=== PATIENT | female | born 1960 | race Caucasian/White ===

== ENCOUNTER 2019-06-03 16:04 | Emergency (ER) | payer MEDICARE, MEDICAID, SELFPAY ==
[2019-06-03] VITALS (8 sets, daily range): BP systolic 126–180; BP diastolic 66–93; PULSE 61–71; RESP 12–51; TEMP 36.2; O2SAT 97–100
--- NOTE | ~2019-06-03 | CT_ITS ---
EXAMINATION: CT BRAIN W/O DATE: 06/03/2019 18:45 INDICATION: Headache. Hypertension. TECHNIQUE: Computed tomography (CT) of the head was performed without intravenous contrast. The dose- length product was 681.00 mGy-cm. The mA was adjusted according to patient size. Iterative reconstruc tion technique was employed. COMPARISON: No prior studies for comparison. FINDINGS: Normal brain parenchymal volume for age. Normal sandhu-white differentiation. No acute intrac ranial hemorrhage, infarction, mass or mass effect. There is intracranial atherosclerosis. No ventriculomegaly or midline shift. Midline sagittal images demonstrate a normal corpus callosum, c raniovertebral junction and sella turcica. Basilar cisterns are patent. There is right maxillary and left ethmoid sinus disease. No depressed skull fractures. IMPRESSION: 1. No acute intracranial abnormality. 2: Sinusitis. Reviewed, dictated and finalized at location A. [employer] PRO[employer] MANAGER
--- NOTE | 2019-06-03 16:17 | ECG_ITS ---
Measurements Intervals [place] Rate: 62 P: 50 RI: 238 QRS: -13 QRSD: 85 T: -3 QT: 439 QTc: 448 Interpretive Statements SINUS RHYTHM WITH FIRST DEGREE AV BLOCK POSSIBLE LEFT ATRIAL ENLARGEMENT LOW QRS VOLTAGE IN PRECORDIAL LEADS POSSIBLE LEFT VENTRICULAR HYPERTROPHY BORDERLINE R WAVE PROGRESSION, ANTERIOR LEADS BASELINE ARTIFACT- V4-V6 ABNORMAL ECG Electronically Signed On 06-03-2019 18:58:01 PROGRAM MANAGER [employer]MENT[employer]ANNING by Pop Thacker D.O.
--- NOTE | 2019-06-03 16:28 | ED.HA ---
HPI - Headache General Chief Complaint: Headache Stated Complaint: HTN,MULLINS Time Seen by Provider: 06/03/19 16:24 Source: patient and RN notes reviewed Mode of arrival: EMS Limitations: no limitations History of Present Illness HPI Narrative: A 59 y/o female, with a hx of HTN, presents to the ED via EMS from PCP's office with a generalized MULLINS beginning this morning. She reports associated dizziness and just feeling like crap .. She states that she went to her PCP's office today and that her BP was 190/104, so they called EMS to have the pt brought here. She notes that she did take her BP medication today but that she is unsure what it is called. She denies any fevers, cough, chills, sore throat, N/V/D, ABD pain, SOB, dysuria, hematuria, and any other medical complaints at this time. MD elicited complaint: headache Pertinent past history: hypertension Onset (ago): hour(s) Location: generalized Associated symptoms: other (dizziness and just feels like crap ) Related Data Allergies Allergy/AdvReac Type Severity Reaction Status Date / Time lisinopril Allergy Swelling Verified 06/03/19 17:50 Review of Systems Review of Systems: All systems reviewed & are unremarkable except as noted in HPI and below Constitutional: Constitutional: Denies chills, Denies fatigue, Denies fever(s), Denies night sweats and Reports other ( just feels like crap ) Eyes: Eyes: Denies change in vision, Denies loss of vision and Denies other visual disturbances ENT: Denies headache(s), Denies hoarseness, Denies epistaxis, Denies nasal congestion and Denies sore throat Cardiovascular: Cardiovascular: Denies chest pain, Denies leg edema, Denies palpitations and Denies dyspnea Respiratory: Respiratory: Denies cough, Denies dyspnea and Denies wheezing Gastrointestinal: Gastrointestinal: Denies abdominal pain, Denies diarrhea, Denies nausea and Denies vomiting Genitourinary: Genitourinary: Denies hematuria, Denies urinary frequency and Denies dysuria Musculoskeletal: Musculoskeletal: Denies abnormal gait, Denies deformity, Denies joint swelling, Denies muscle weakness and Denies numbness Integumentary/Breasts: Skin/Breast: Denies rash, Denies unusual bruising and Denies wounds Neurologic: Denies abnormal gait, Reports dizziness, Reports headache(s), Denies focal weakness, Denies loss of vision and Denies numbness Psychiatric: Psychiatric: Reports no additional psychiatric complaints Endocrine: Endocrine: Denies fatigue and Denies palpitations Hematologic/Lymphatic: Hematologic/Lymphatic: Denies easy bleeding and Denies easy bruising Allergic/Immunologic: Allergic/Immunologic: Denies wheezing PMFSH Past Medical History Medical History (Updated 06/03/19 @ 19:31 by Driss Khanna MD) H/O: HTN (hypertension) Medical history unknown Surgical History Surgical History (Updated 06/03/19 @ 17:06 by Akash Cheng) Surgical history unknown Social History Social History (Updated 06/03/19 @ 17:06 by Akash Cheng) Smoking status: Unknown if ever smoked Gender identity (if verbalized by the patient): Female Comments PCP: Dr. Escobar. Exam Const: General: healthy appearing, no acute distress and well developed Nutritional Appearance: well nourished Orientation/consciousness: patient oriented x3 (alert) and Other orientation findings (Alert) Limitations: no limitations HENMT: Head: normocephalic and atraumatic Ears: external ears normal General nose exam: No nasal discharge present and no epistaxis Face and sinus: face symmetric Mouth: Yes lip normal, Yes tongue normal and Yes moist mucous membranes Throat: other (No exudate, no erythema) Eyes: Conjunctivae: conjunctivae normal Sclera: sclerae normal EOM: EOMs intact bilaterally Neck: Neck: full ROM, no lymphadenopathy and supple Thyroid: thyroid normal Chest: Chest palpation & inspection: no tenderness Resp: Effort & Inspection: normal respiratory effort Auscultation: clear to auscultation
[2019-06-03 17:49] LABS: Basophils Percent Auto 0.5 % (0.2-1.2); Eosinophils Absolute Auto 0.1 K/mm3 (0-0.3); Eosinophils Percent Auto 2.9 % (0-4.4); Hematocrit 35.7 % (37.0-47.0); Hemoglobin 12.3 g/dL (12.0-15.0); Immature Granulocyte Absolute 0.01 K/mm3 (0.00-0.031); Immature Granulocyte Percent A 0.2 % (0-0.5); Lymphocytes Absolute Auto 2.25 K/mm3 (0.9-3.2); Lymphocytes Percent Auto 55.1 % (18.3-44.2); Mean Corpuscular HGB Conc 34.5 g/dl (32-36); Mean Corpuscular Hemoglobin 31.9 pg (26-34); Mean Corpuscular Volume 92.5 fl (80-100); Mean Platelet Volume 11.6 fl (7.4-10.4); Monocytes Absolute Auto 0.4 K/mm3 (0.1-0.6); Neutrophils Absolute Auto 1.3 K/mm3 (1.3-6.7); Neutrophils Percent Auto 31.3 % (45.5-73.1); Platelet Count Result 95 k/mm3 (150-375); Red Blood Count 3.86 M/mm3 (4.2-5.4); White Blood Count 4.1 K/mm3 (4.5-10.0)
[2019-06-03 18:02] LABS: Blood Urea Nitrogen 11 mg/dL (7-17); Carbon Dioxide 22 mmol/L (22-30); Chloride 106 mmol/L (98-107); Estimated Glomerular Filt Rate > 60; Glucose 147 mg/dL (65-105); Potassium 3.8 mmol/L (3.4-5.0); Sodium 137 mmol/L (137-145)
[2019-06-03] MEDS: hydrALAZINE HCL 20 MG/ML VIAL 10 MG IV PUSH (18:07)
[2019-06-03 18:14] LABS: Troponin I < 0.012 ng/mL (0.000-0.034)
== END 2019-06-03 19:46 | disposition home or self-care (01) ==
PROVIDERS: Emergency Provider Emergency Medicine
DX: R51 Headache (principal); J34.89 Other specified disorders of nose and nasal sinuses
CPT/HCPCS: 36415; 70450; 80048; 84484; 85025; 93005; 96374; 99284; J0360

== ENCOUNTER 2019-10-27 11:22 | Emergency (ER) | payer MEDICARE, MEDICAID, SELFPAY ==
[2019-10-27] VITALS (17 sets, daily range): BP systolic 87–130; BP diastolic 48–68; PULSE 70–101; RESP 13–19; TEMP 36.9; O2SAT 92–98
--- NOTE | ~2019-10-27 | CT_ITS ---
EXAMINATION: CT abdomen pelvis w con EXAM DATE: 10/27/2019 13:03 INDICATION: Abdominal pain. Lethargy and confusion. TECHNIQUE: Spiral CT of the abdomen and pelvis was performed following intravenous injection of 100 m L Omnipaque 350. Axial, coronal and sagittal images were reviewed. The dose-length product (DLP) fo r this examination was 799.21 mGy-cm. The exposure was tailored according to patient size (auto mA e xposure control), and iterative reconstruction (ASIR) was used as additional dose reduction technique . There is no prior study for comparison. FINDINGS: Nodular liver contour most likely indicating cirrhosis. Massively dilated left-sided retrop eritoneal veins draining into the portal venous system consistent with portal hypertension. There are cholecystectomy clips. Portal and splenic veins are patent. Kidneys enhance symmetrically. Probabl e 3 mm right calyceal stone. Right renal cyst measuring 1.8 cm. There is no hydronephrosis. The [place] sariah is not identified and has likely been surgically resected. Some diffuse bladder wall thickening, could indicate chronic cystitis. Acute cystitis not excludable. There is no retroperitoneal or pelv ic lymphadenopathy. There is mild scattered arteriosclerotic disease. Probable appendectomy. There is mild scattered colonic diverticulosis. There is no adjacent inflamma tory change to suggest diverticulitis. There is a 2 cm duodenal diverticulum. There is expected amou nt of colonic stool. No free intraperitoneal gas. Mild cardiomegaly. The lung bases are unremark able. There are no osteoblastic or osteolytic lesions identified. IMPRESSION: 1. Diffuse bladder wall thickening could be chronic cystitis but check urinalysis. 2. Cirrhosis, portal hypertension. 3. Right nephrolithiasis. 4. Mild colonic diverticulosis. 5. Mild cardiomegaly Reviewed, dictated and finalized at location B. IMPRESSION: 1. Diffuse bladder wall thickening could be chronic cystitis but check urinaly sis. 2. Cirrhosis, portal hypertension. 3. Right nephrolithiasis. 4. Mild colonic diverticulosis. 5. Mild cardiomegaly
--- NOTE | ~2019-10-27 | CT_ITS ---
EXAMINATION: CT brain wo con EXAM DATE: 10/27/2019 13:04 INDICATION: Lethargy and confusion. TECHNIQUE: Spiral CT of the head was performed without contrast. Axial, coronal and sagittal images were reviewed. The dose-length product (DLP) for this examination was 605.33 mGy-cm. The exposure w as tailored according to patient size, and iterative reconstruction (ASIR) was used as additional dos e reduction technique. Comparison is made to prior examination from 06/03/2019. FINDINGS: There is no acute intraparenchymal hemorrhage. No evidence of intraparenchymal brain mass lesion. No evidence of acute infarction. There is no mass effect or midline shift. The ventricles are normal in size. There are no extra-axial collections. There are no acute calvarial fractures. T he orbits are unremarkable. Soft tissue is unremarkable. Partially imaged maxillary sinuses with op acity in the right. IMPRESSION: 1. No acute intracranial findings. Reviewed, dictated and finalized at location B.
--- NOTE | ~2019-10-27 | XR_ITS ---
EXAMINATION: XR chest 1V portable EXAM DATE: 10/27/2019 13:23 INDICATION: Altered mental status. TECHNIQUE: Portable AP frontal chest x-ray was obtained. Comparison is made to prior examination from 01/22/2017. FINDINGS: The lungs are clear. There are no pleural effusions. Cardiac silhouette is prominent but magnified on this AP technique. There is no pneumothorax suspected. The bones and soft tissues are unremarkable. IMPRESSION: No acute cardiopulmonary findings. Reviewed, dictated and finalized at location B.
--- NOTE | 2019-10-27 11:33 | ECG_ITS ---
Measurements Intervals [place] Rate: 89 P: 69 MA: 172 QRS: 17 QRSD: 93 T: 26 QT: 377 QTc: 459 Interpretive Statements SINUS RHYTHM POSSIBLE LEFT ATRIAL ENLARGEMENT INCOMPLETE RIGHT BUNDLE BRANCH BLOCK BASELINE ARTIFACT- II, III, AVF BORDERLINE ECG Electronically Signed On 10-27-2019 14:41:50 CDT by Pop Thacker D.O.
[2019-10-27 11:45] LABS: Basophils Percent Auto 0.4 % (0.2-1.2); Eosinophils Absolute Auto 0.1 K/mm3 (0-0.3); Hematocrit 36.6 % (37.0-47.0); Hemoglobin 12.6 g/dL (12.0-15.0); Immature Granulocyte Absolute 0.02 K/mm3 (0.00-0.031); Immature Granulocyte Percent A 0.3 % (0-0.5); Lymphocytes Absolute Auto 4.55 K/mm3 (0.9-3.2); Lymphocytes Percent Auto 59.2 % (18.3-44.2); Mean Corpuscular HGB Conc 34.4 g/dl (32-36); Mean Corpuscular Hemoglobin 31.6 pg (26-34); Mean Corpuscular Volume 91.7 fl (80-100); Mean Platelet Volume 10.8 fl (7.4-10.4); Monocytes Absolute Auto 0.7 K/mm3 (0.1-0.6); Monocytes Percent Auto 9.2 % (2.6-8.5); Neutrophils Absolute Auto 2.3 K/mm3 (1.3-6.7); Neutrophils Percent Auto 29.9 % (45.5-73.1); Platelet Count Result 122 k/mm3 (150-375); Red Blood Count 3.99 M/mm3 (4.2-5.4); Red Cell Distribution Width 13.2 % (11.5-14.5); White Blood Count 7.7 K/mm3 (4.5-10.0)
[2019-10-27 11:57] LABS: Alanine Aminotransferase 33 U/L (4-35); Albumin Level 3.8 g/dL (3.5-5.1); Alkaline Phosphatase 99 U/L (38-126); Aspartate Amino Transferase 91 U/L (14-36); Bilirubin,Total 1.8 mg/dL (0.2-1.3); Blood Urea Nitrogen 16 mg/dL (7-17); Calcium 9.7 mg/dL (8.4-10.2); Carbon Dioxide 18 mmol/L (22-30); Chloride 115 mmol/L (98-107); Estimated CRCL calculation 76 ml/min; Estimated Glomerular Filt Rate > 60; Glucose 139 mg/dL (65-105); Potassium 4.6 mmol/L (3.4-5.0); Sodium 140 mmol/L (137-145)
[2019-10-27 12:07] LABS: Add Urine Microscopic? YES; Appearance Urine Clear (Clear); Bilirubin Urine Negative (Negative); Blood Urine 2+ (Negative); Color Urine Yellow (Yellow); Glucose Urine UA Negative (Negative); Ketones Urine Trace mg/dL (Negative); Leukocyte Esterase Ur Trace LEU/UL (Negative); Mucus Urine Rare /lpf; Nitrate Urine Negative (Negative); Protein Urine 1+ mg/dL (Negative); RBC Urine 21-50 /hpf (0-2); Specific Grav Ur 1.017 (1.001-1.035); Squamous Epithelial Cell Urine Rare /hpf (Few)
--- NOTE | 2019-10-27 12:24 | ED.AMS ---
HPI - Altered Mental Status General Chief Complaint: Altered Mental Status Stated Complaint: lethargic Time Seen by Provider: 10/27/19 12:16 History of Present Illness HPI narrative: Patient presents via EMS for altered mental status from home. She has been living with her daughter since for medical reasons. She has chronic hepatitis C and hypertension and diabetes. She has had episodes before where she became unresponsive and had overwhelming infection. She was hoping to move to [place] for further medical treatment but has not made it yet. Here she does not speak she only groans when moved. Her daughter said she was able to help her mother in the shower this morning and wash her hair, but has not been talking since. No recent visible illness. Her mother does smoke cigarettes but does not drink alcohol. Related Data Home Medications Medication Instructions Recorded Confirmed Adult Low Dose Aspirin 81 mg PO DAILY 10/27/19 10/27/19 hydrocodone-acetaminophen PO Q6H PRN 10/27/19 meloxicam 15 mg PO DAILY 10/27/19 10/27/19 pravastatin 20 mg PO DAILY 10/27/19 10/27/19 propranolol 20 mg PO BID 10/27/19 10/27/19 spironolactone 25 mg PO BID 10/27/19 10/27/19 sulfamethoxazole-trimethoprim tablet PO BID 10/27/19 Allergies Allergy/AdvReac Type Severity Reaction Status Date / Time aloe vera Allergy Mild HIVES Verified 08/13/19 13:33 latex Allergy Unknown Rash Verified 10/27/19 11:36 lisinopril Allergy Swelling Verified 08/13/19 13:33 Review of Systems Review of Systems: Narrative: Unable to obtain a review of systems due to the patient being altered mental status. [facility] Past Medical History Medical History H/O: HTN (hypertension) Medical history unknown Surgical History Surgical History (System 08/13/19 @ 13:33 by Monet Zee) Surgical history unknown Family History Family History (System 08/13/19 @ 13:33 by Monet Zee) Father Hypertension Cerebrovascular accident Family history of heart disease in male family member before age 55 Social History Social History Smoking status: Current every day smoker Second hand tobacco smoke exposure: Yes Alcohol intake: never Gender identity (if verbalized by the patient): Female Sexual Orientation (if Verbalized by the Patient): Straight or Heterosexual Exam Narrative: Exam Narrative: GENERAL: Sleeping on her left side in position with her arms curled under her face. Resistant to any movement. We have told her to lay on her back to listen to her heart and lungs and she moaned. HEAD: Normocephalic, atraumatic. EYES: PERRLA and EOMI. ENT: Nares clear, no rhinorrhea or epistaxis. Mucous membranes moist. NECK: Supple. CHEST: Clear to auscultation. No respiratory distress. HEART: Regular rate and rhythm. No murmur heard. Normal peripheral pulses. ABDOMEN: Soft, nontender, nondistended, normal active bowel sounds. EXTREMITIES: No edema. SKIN: Warm, dry, no rash. NEURO: No focal deficits. Lethargic. PSYCH: No eye contact , no spontaneous speech Course Consultations Consultation #1: Tried to call the son and the phone number has been rerouted. Date: 10/27/19 Time: 13:42 Consultation #2: Called the [place] access line and spoke with Nel. She will find the manager resource and call me back.Dr. Soares called back and accepts for the pathology service. She will be a direct admit as soon as a room is available. She is to have her lactulose enema before being discharged from here. Hopefully she will wake up in some of her Date: 10/27/19 Time: 13:43 Vital Signs Vital signs: Vital Signs Temperature 98.4 F 10/27/19 11:28 Pulse Rate 101 H 10/27/19 11:28 Respiratory Rate 19 10/27/19 11:28 Blood Pressure 87/68 L 10/27/19 11:28 Pulse Oximetry 97 10/27/19 11:28 Temperature 98.4 F 10/27/19 11:28 Pulse Ra
[2019-10-27] MEDS: SODIUM CHLORIDE 0.9% IV 1,000 ML 500 ML IV CONT (12:33)
--- NOTE | 2019-10-27 12:45 | PC.NURSE ---
WAS PREPPING PT FOR DRAWING MORE BLOOD AND CT CAME TO TAKE THE PT, WILL COME BACK WHEN PT RETURNS
[2019-10-27 13:16] LABS: NT Pro B Type Natriuretic Pept 55 PG/ML (5-100); Troponin I < 0.012 ng/mL (0.000-0.034)
[2019-10-27 13:33] LABS: Ammonia 82 umol/L (9-30); Ethanol < 10 mg/dL (<10); Lactic Acid 1.6 mmol/L (0.7-2.1)
[2019-10-27] MEDS: LACTULOSE ENEMA 200 GM/1,000 ML ENEMA RECTAL (16:42)
== END 2019-10-27 16:57 | disposition short-term general hospital (02) ==
PROVIDERS: Emergency Provider Emergency Medicine
DX: B18.2 Chronic viral hepatitis C (principal); K76.6 Portal hypertension; K72.00 Acute and subacute hepatic failure without coma; D69.6 Thrombocytopenia, unspecified; K74.60 Unspecified cirrhosis of liver; R41.82 Altered mental status, unspecified; I10 Essential (primary) hypertension; E11.9 Type 2 diabetes mellitus without complications; F17.210 Nicotine dependence, cigarettes, uncomplicated; I45.10 Unspecified right bundle-branch block; N20.0 Calculus of kidney; K57.90 Diverticulosis of intestine, part unspecified, without perforation or abscess without bleeding; I51.7 Cardiomegaly; R93.41 Abnormal radiologic findings on diagnostic imaging of renal pelvis, ureter, or bladder; Z79.899 Other long term (current) drug therapy
CPT/HCPCS: 36415; 51701; 70450; 71045; 74177; 80053; 80307; 81001; 81025; 82140; 83605; 83880; 84484; 85025; 87040; 87086; 93005; 96360; 96361; 99285; J7030; Q9967